=== PATIENT | female | born 1955 | race Caucasian/White ===

== ENCOUNTER → 2021-11-09 | Outpatient (CLI) | payer MEDICARE, OTHER | LOC: ORTHO 08:39 | PROVIDERS: ATTEND Orthopaedic Surgery | DX: M17.11 Unilateral primary osteoarthritis, right knee (principal) | CPT/HCPCS: 99213 ==

== ENCOUNTER → 2022-01-04 | Outpatient (CLI) | payer MEDICARE, OTHER ==
[2022-01-04 09:39] LABS: BASOPHILS % (AUTO) 0 % (0-10); EOSINOPHILS # (AUTO) 0.3 10^3/uL (0.0-0.3); EOSINOPHILS % (AUTO) 4 % (0-10); HEMATOCRIT 39 % (35-52); HEMOGLOBIN 13.3 g/dL (11.5-16.0); LYMPHOCYTES % (AUTO) 28 % (12-44); MEAN CORPUSCULAR HEMOGLOBIN 31 pg (25-34); MEAN CORPUSCULAR HGB CONC 35 g/dL (32-36); MEAN CORPUSCULAR VOLUME 89 fL (80-99); MEAN PLATELET VOLUME 9.3 fL (9.0-12.2); MONOCYTES # (AUTO) 0.5 10^3/uL (0.0-1.0); MONOCYTES % (AUTO) 6 % (0-12); NEUTROPHILS # (AUTO) 4.3 10^3/uL (1.8-7.8); NEUTROPHILS % (AUTO) 62 % (42-75); PLATELET COUNT 362 10^3/uL (130-400); WHITE BLOOD COUNT 7.1 10^3/uL (4.3-11.0)
[2022-01-04 09:41] LABS: BILIRUBIN,URINE NEGATIVE (NEGATIVE); CLARITY,URINE CLEAR; COLOR,URINE YELLOW; GLUCOSE, URINE (UA) NEGATIVE (NEGATIVE); KETONES,URINE NEGATIVE (NEGATIVE); LEUKOCYTE ESTERASE ,URINE NEGATIVE (NEGATIVE); NITRITE,URINE NEGATIVE (NEGATIVE); PROTEIN,URINE NEGATIVE (NEGATIVE)
[2022-01-04 09:49] LABS: BACTERIA,URINE NEGATIVE /HPF
[2022-01-04 09:58] LABS: CALCIUM 9.5 MG/DL (8.5-10.1); CREATININE SERUM 0.88 MG/DL (0.60-1.30); POTASSIUM 3.7 MMOL/L (3.6-5.0)
--- NOTE | 2022-01-04 14:18 | Diagnostic Imaging Report ---
INDICATION: Preop for right knee replacement surgery. PA and lateral chest obtained at 9:47 a.m. FINDINGS: Heart and mediastinal silhouette are normal in appearance. The lungs are clear. There is no pneumothorax or pleural fluid. IMPRESSION: Negative chest. Dictated by: Dictated on workstation # [id number]
--- NOTE | 2022-01-04 14:52 | Diagnostic Imaging Report ---
INDICATION: Right knee pain AP, oblique, and lateral sunrise views of the right knee are obtained. There is advanced degenerative change of the medial compartment of the right knee with severe joint space narrowing and osteophyte formation. The lateral compartment appears relatively preserved. There is patellofemoral osteophyte formation and mild joint space narrowing. IMPRESSION: Degenerative changes of the right knee, most severe in the medial compartment. No acute bony abnormality. Dictated by: Dictated on workstation # [id number]
== END ==
LOC: ORTHO 09:05
PROVIDERS: ATTEND Orthopaedic Surgery
DX: Z01.89 Encounter for other specified special examinations (principal); Z01.818 Encounter for other preprocedural examination; M17.11 Unilateral primary osteoarthritis, right knee
CPT/HCPCS: 36415; 71046; 73564; 80048; 81000; 85025; 93005

== ENCOUNTER 2022-01-10 05:30 | Outpatient (CLI) | payer MEDICARE, OTHER ==
[~2022-01-10] VITALS: Ht 167.6 cm; Wt 99.0 kg
[2022-01-12] MEDS ORDERED: ALPR0.254 PO (13:23)
[2022-01-12] MEDS ORDERED: AMLO-250 PO (13:23)
[2022-01-12] MEDS ORDERED: LOSA100T57 PO (13:23)
[2022-01-12] MEDS ORDERED: ESTR0.5T3 PO (13:23)
[2022-01-12] MEDS ORDERED: DICL75TA2 PO (13:23)
[2022-01-12] MEDS ORDERED: HYDR25TA4 PO (13:23)
[2022-01-12] MEDS ORDERED: GABA-486 PO (13:23)
[2022-01-12] MEDS ORDERED: BENZ200C51 PO (13:23)
[2022-01-12] MEDS ORDERED: ONDA4TAB11 SL (13:23)
[2022-01-12] MEDS ORDERED: METF-478 PO (13:23)
== END 2022-01-12 14:04 | disposition home or self-care (01) ==
LOC: PREOP 05:30
PROVIDERS: ATTEND Orthopaedic Surgery
DX: Z01.818 Encounter for other preprocedural examination (principal)

== ENCOUNTER 2022-01-17 06:02 | Day surgery (SDC) | payer MEDICARE, OTHER ==
[~2022-01-17] VITALS: Ht 167.6 cm; Wt 99.0 kg
[2022-01-17] VITALS (11 sets, daily range): BP systolic 113–190; BP diastolic 35–97
[~2022-01-17 06:02] MED LIST: ALPR0.254 PO; AMLO-250 PO; BENZ200C51 PO; DICL75TA2 PO; ESTR0.5T3 PO; GABA-486 PO; HYDR25TA4 PO; LOSA100T57 PO; METF-478 PO; ONDA4TAB11 SL
[2022-01-17] MEDS ORDERED: ceFAZolin INJECTION 2,000 MG in NS (IVPB) 50 ML IV ONE (06:15)
[2022-01-17] MEDS: LACTATED RINGERS 1,000 ML IV PRN ×2 (06:33→09:12)
[2022-01-17] MEDS ORDERED: SCOPOLAMINE 1.5 MG (TRANSDERM-SCOP) PATCH ONE (06:37)
[2022-01-17] MEDS ORDERED: ONDANSETRON 4 MG/2 ML (SDV) Z0FRAN ONE (06:37)
[2022-01-17] MEDS ORDERED: FAMOTIDINE 20MG/2ML IV (PEPCID) ONE (06:38)
[2022-01-17] MEDS ORDERED: ROPIVACAINE 5MG/ML 30ML VIAL ONE (06:42)
[2022-01-17] MEDS ORDERED: MIDAZOLAM 2 MG/2 ML (VERSED) VIAL ONE (06:43)
[2022-01-17] MEDS ORDERED: fentaNYL INJ 100 MCG/2 ML AMP ONE ×2 (06:43→08:05)
[2022-01-17] MEDS ORDERED: SCOPOLAMINE 1.5 MG (TRANSDERM-SCOP) PATCH TD ONE (06:45)
[2022-01-17] MEDS ORDERED: FAMOTIDINE 20MG/2ML IV (PEPCID) IVP ONE (06:45)
[2022-01-17] MEDS ORDERED: ONDANSETRON 4 MG/2 ML (SDV) Z0FRAN IVP ONE (06:45)
[2022-01-17] MEDS ORDERED: proPOfol 200 MG/20 ML (DIPRIVAN) VIAL IV ONE (06:53)
[2022-01-17] MEDS ORDERED: LIDOCAINE PF 2% 5 ML (XYLOCAINE) VIAL ONE (06:59)
[2022-01-17] MEDS ORDERED: SEVOFLURANE (ULTANE) 15 ML INHAL SOLN ONE (06:59)
[2022-01-17] MEDS ORDERED: SODIUM CHLORIDE 0.9% IRRIGATIO 150 ML, TRANEXAMIC ACID INJECTION 3,000 MG IR ONE ×2 (07:00)
--- NOTE | 2022-01-17 07:17 | Progress Note-Pre Operative ---
Pre-Operative Progress Note Date of Available H&P: Jan 04, 2022 Date H&P Reviewed: Jan 17, 2022 Time H&P Reviewed: 07:10 History & Physical: H&P Reviewed, Patient Examed, No changes noted Pre-Operative Diagnosis: Right Knee Primary Osteoarthritis RADHA VEGA MD Jan 17, 2022 07:17
--- NOTE | 2022-01-17 09:56 | Anesthesia-General Post-Op ---
General Patient Condition Mental Status/LOC: Same as Preop Cardiovascular: Satisfactory Nausea/Vomiting: Absent Respiratory: Satisfactory Pain: Controlled Complications: Absent Post Op Complications Complications None Follow Up Care/Instructions Patient Instructions None needed. Anesthesia/Patient Condition Patient Condition Patient is doing well, no complaints, stable vital signs, no apparent adverse anesthesia problems. No complications reported per nursing. GARRY MOSQUERA CRNA Jan 17, 2022 09:56
--- NOTE | 2022-01-17 09:58 | Operative Report - Ortho ---
Operative Report Surgeon (s)/Application Assistant (s) Surgeon RADHA VEGA MD Application Assistant n/a Pre-Operative Diagnosis Right Knee Primary Osteoarthritis Post-Operative Diagnosis same Operative Report Date of Procedure: Jan 17, 2022 Name of Procedure Performed: Right Total Knee Arthroplasty Description & Findings After obtaining informed consent and marking the patient in the preoperative holding area, the patient did receive IV antibiotics. Patient was taken to the operating room and anesthesia was induced. Surgical timeout was taken. The right lower extremity was prepped and draped in the usual sterile fashion. Incision was made and carried down to fascia. Arthrotomy was performed on the medial side of the patella. Patella was retracted laterally and knee was flexed. Found to have circumferential osteophtye around the distal femur as well as exposed bone in the medial compartment. Hole was made in the distal femur for the intramedullary distal femoral cutting guide. Resection was made then the femur was sized as a 3. 4-in-1 block for a size [address]. Anterior cut was made and there was no notch. Posterior cut was made followed by the chamfers. Box cut was performed. Lug holes were drilled. Attention was turned to the tibial side, extramedullary tibial guide was put into place and aligned with the tibial crest. It was set to take 2 mm off of the affected lateral side. Drop johnny was used to confirm alignment. Resection was made and was parallel to the joint line. Tibial bone block was removed. Lamina price analyst was put into place and the menisci and posterior osteophytes were removed. The knee was trialed with a size 3 femur and a size 3 tibia with a 9 mm poly trial. It was found to come out to full extension and flexed beyond 120 degrees. It was stable to varus and valgus stress throughout its range of m otion. This was accepted. Knee was brought out into extension and the patella was measured at less than 20 mm of thickness. Osteophytes were removed from around the perimeter of the patella. Trial implants were removed. Tibial tray was pinned and punched. The cut bone surfaces were lavaged with pulsatile normal saline. Implants were opened and assembled on the back table. Cement was mixed. Cement was applied to the cut bone surface as well as the implant surface. A size 3 tibial component was impacted into placed and excess cement was removed using a [place]. A size 3 femoral component was impacted into place and excess cement was removed using a [place]. Tibial tray was lavaged with saline. A 9 mm thick polyethylene component was locked into placed and the locking mechanism was checked. Knee was brought into extension. The knee was irrigated with normal saline. Irrigation was removed and tranexamic acid was placed. Once the cement had set, the knee was once again trialed; found to come to full extension, flexed beyond 120 degrees, and was stable to varus and valgus stress. A lateral release was performed to improve patellar tracking. Further tranexamic acid was applied for hemostasis. Tourniquet was dropped and electrocautery was used for further hemostasis. Fascial layer was closed with #2 Stratafix. The subcutaneous layer was closed with 2-0 Vicryl. The skin was closed with 3-0 v-loc. Wound was dressed with steri-strips, xeroform, 4x4s, ABD, webril, and SERGIO wrap. Patient tolerated the procedure well and was stable to the recovery room. Anesthesia Type General plus regional Estimated Blood Loss 150 mL Specimen(s) collected/removed None RADHA VEGA MD Jan 17, 2022 09:58
[2022-01-17] MEDS ORDERED: MEPERIDINE (DEMEROL) INJ 50 MG/ML IVP ONE (10:00)
[2022-01-17] MEDS ORDERED: BISACODYL 5 MG (DULCOLAX) TABLET PO PRN (10:00)
[2022-01-17] MEDS ORDERED: ONDANSETRON 4 MG/2 ML (SDV) Z0FRAN IVP PRN (10:00)
[2022-01-17] MEDS ORDERED: PROMETHAZINE INJ 25 MG/ML (PHENERGAN) AMP IVP ONE (10:00)
[2022-01-17] MEDS ORDERED: MILK OF MAGNESIA 400 MG/5 ML 30 ML UDC PO PRN (10:00)
[2022-01-17] MEDS ORDERED: fentaNYL INJ 100 MCG/2 ML AMP IVP ONE (10:00)
[2022-01-17] MEDS ORDERED: ACETAMINOPHEN 500 MG TAB (TYLENOL) PO PRN (10:00)
--- NOTE | 2022-01-17 10:40 | Diagnostic Imaging Report ---
CLINICAL INDICATION: Postop total knee replacement. EXAM: X-ray of the right knee, 2 views. COMPARISON: None. FINDINGS: Right total knee arthroplasty is seen in good position. There is a compressive device and air overlying the anterior aspect of the right knee. There are chronic appearing hypertrophic bony changes involving the medial aspect of the proximal tibial diametaphysis. IMPRESSION: Right total knee arthroplasty is seen in good position. There is no unexpected radiodense foreign object. Dictated by: Dictated on workstation # [id number]
[2022-01-17] MEDS: HYDROmorphone 2 MG/ML VIAL (DILAUDID) IV PRN ×5 (11:11→20:39)
[2022-01-17] MEDS: NS IV 1000 ML 1,000 ML IV SCH ×2 (12:55→20:30)
[2022-01-17] MEDS: BENZONATATE 100 MG (TESSALON) CAPSULE PO SCH ×2 (12:56→19:33)
[2022-01-17] MEDS: ALPRAZolam 0.25 MG (XANAX) TAB PO SCH ×2 (12:56→20:33)
[2022-01-17] MEDS: PROMETHAZINE INJ 25 MG/ML (PHENERGAN) AMP IVP PRN ×2 (13:02→20:50)
--- NOTE | 2022-01-17 14:08 | Physical Therapy Evaluation ---
PT Evaluation-General Medical Diagnosis Admission Date January 17, 2022 Medical Diagnosis: right knee osteoarthritis Onset Date: Jan 17, 2022 Therapy Diagnosis Therapy Diagnosis: impair mobility Precautions Precautions/Isolations: Standard Precautions Referral Physician: Glenn Reason for Referral: Evaluation/Treatment Medical History Current History s/p elective right TKR Reviewed History: Yes Social History Home: [facility] Current Living Status: Spouse Entry Into Home: Stairs With Railing Prior Prior Level of Function SCALE: Activities may be completed with or without assistive devices. 3-Iboekudncd-tdrahug completes the activity by him/herself with no assistance from a helper. 5-Set-up or Clean-up Assistance-helper sets up or cleans up; patient completes activity. [place] assists only prior to or following the activity. 4-Supervision or Touching Assistance-helper provides verbal cues and/or touching/steadying and/or contact guard assistance as patient completes activity. Assistance may be provided throughout the activity or intermittently. 3-Partial/Moderate Assistance-helper does LESS THAN HALF the effort. [place] lifts, holds or supports trunk or limbs, but provides less than half the effort. 2-Substantial/Maximal Assistance-helper does MORE THAN HALF the effort. [place] lifts or holds trunk or limbs and provides more than half the effort. 6-Rpsvceqpa-lfmtlm does ALL the effort. Patient does none of the effort to complete the activity. Or, the assistance of 2 or more helpers is required for the patient to complete the activity. If activity was not attempted, code reason: 7-Patient Refused. 9-Not Applicable-not attempted and the patient did not perform the activity before the current illness, exacerbation or injury. 10-Not Attempted due to Environmental Limitations-(lack of equipment, weather restraints, etc.). 88-Not Attempted due to Medical Conditions or Safety Concerns. Bed Mobility: 6 Transfers (B,C,W/C): 6 Gait: 6 Stairs: 6 Indoor Mobility (Ambulation): Independent Stairs: Independent Prior Devices Use: Walker PT Evaluation-Current Subjective Patient c/o nausea and uncontrolled right knee pain. Pain Numeric Pain Scale: 10-Worst Possible Pain Location: Right Location Body Site: Knee Pain Description: Acute Objective Patient Orientation: Normal For Age Attachments: Oxygen, Carpio Catheter, Polar Pack, IV ROM/Strength ROM Lower Extremities right knee CPM 0-50 degrees left LE WFL Strength Lower Extremities left LE 4/5 grossly/right LE 3-/5 grossly (no formal testing) Integumentary/Posture Bladder Incontinence: Carpio Cath Posture WFL Neuromuscular (Tone, Coordination, Reflexes) grossly intact Sensory Vision: Functional Hearing: Functional Transfers Sit to Lying (QC): 3 Lying to Sitting/Side of Bed(Q: 4 Sit to Stand (QC): 3 Gait Mode of Locomotion: Walk Anticipated Mode of Locomotion: Walk Walk 10 feet (QC): 4 Distance: 10' side stepping Gait Assistive Device: FWW Balance Sitting Static: Normal Sitting Dynamic: Normal Standing Static: Fair Standing Dynamic: Fair Treatment CPM 0-50 degrees with polar pack in place right LE Assessment/Needs Patient will benefit from skilled PT to address functional strength and mobility to improve current LOF. Patient currently limited by nausea and uncontrolled right knee pain. CPM and polar pack in place right LE Rehab Potential: Good PT [facility] Goals [facility] Goals PT Audit Lead Goals Time Frame: Jan 22, 2022 Roll Left & Right (QC): 6 Sit to Lying (QC): 6 Lying-Sitting on Side/Bed(QC): 6 Sit to Stand (QC): 6 Chair/Mpg-vh-Jdqro Xfer(QC): 6 Toilet Transfer (QC): 6 Walk 10 feet (QC): 6 Walk 50ft with 2 Turns (QC): 6 Walk 150 ft (QC): 6 PT Plan Problem List Problem List: Activity Tolerance, Functional Strength, Safety, Balance, Gait, Transfer, Bed Mobility, ROM Treatment/Plan Treatment Plan: Continue Plan of Care Treatment Plan: Bed Mobility, Education, Functional Activity Davi, Functional Strength, Gait, Safety, Therapeutic Exercise, Transfers Treatment Duration: Jan 22, 2022 Frequency: 11 times per week Estimated Hrs Per Day: .5 hour per day Time Time In: 1310 Time Out: 1330 DATE: Jan 17, 2022 Total Billed Treatment Time: 20 Total Billed Treatment 1 visit EVModC 20 min CPM/PADS MAHESH CUBA PT Jan 17, 2022 14:08
[2022-01-17] MEDS: ASPIRIN E.C. 81 MG (ECOTRIN) TAB PO SCH (17:37)
[2022-01-17] MEDS: HYDROmorphone (DILAUDID) 2 MG TAB PO PRN (19:31)
[2022-01-17] MEDS: CELECOXIB 100 MG (CeleBREX) CAP PO SCH (20:33)
[2022-01-17] MEDS: DOCUSATE SODIUM 100 MG (COLACE) CAP PO SCH (20:33)
[2022-01-17] MEDS: GABAPENTIN 100 MG (NEURONTIN) CAP PO SCH (20:33)
[2022-01-17] MEDS: ceFAZolin INJECTION 2,000 MG in NS (IVPB) 50 ML IV SCH (20:51)
[2022-01-18] VITALS (8 sets, daily range): BP systolic 146–185; BP diastolic 60–79
[2022-01-18] MEDS: HYDROmorphone (DILAUDID) 2 MG TAB PO PRN ×4 (00:41→20:36)
[2022-01-18] MEDS: HYDROmorphone 2 MG/ML VIAL (DILAUDID) IV PRN (02:57)
[2022-01-18] MEDS: PROMETHAZINE INJ 25 MG/ML (PHENERGAN) AMP IVP PRN (03:52)
[2022-01-18] MEDS: ceFAZolin INJECTION 2,000 MG in NS (IVPB) 50 ML IV SCH (05:32)
[2022-01-18] MEDS: NS IV 1000 ML 1,000 ML IV SCH (05:32)
[2022-01-18] MEDS: MULTIVIT W/MINERALS TAB (THERAGRAN M) PO SCH ×2 (05:35→07:33)
[2022-01-18 05:43] LABS: HEMOGLOBIN 10.9 g/dL (11.5-16.0)
[2022-01-18] MEDS: CELECOXIB 100 MG (CeleBREX) CAP PO SCH ×2 (07:33→20:35)
[2022-01-18] MEDS: ASPIRIN E.C. 81 MG (ECOTRIN) TAB PO SCH ×2 (07:34→17:19)
[2022-01-18] MEDS: LOSARTAN 100 MG (COZAAR) TABLET PO SCH (07:34)
[2022-01-18] MEDS: DOCUSATE SODIUM 100 MG (COLACE) CAP PO SCH ×2 (07:34→20:36)
[2022-01-18] MEDS: ALPRAZolam 0.25 MG (XANAX) TAB PO SCH ×3 (07:35→20:36)
[2022-01-18] MEDS: BENZONATATE 100 MG (TESSALON) CAPSULE PO SCH ×3 (07:35→20:36)
[2022-01-18] MEDS: amLODIPine 5 MG (NORVASC) TAB PO SCH (07:35)
[2022-01-18] MEDS: metFORMIN XR 500 MG (GLUCOPHAGE XR) TAB PO SCH (07:35)
--- NOTE | 2022-01-18 08:28 | Progress Note - Ortho ---
Progress Note Subjective Date of Exam 01/18/22 Chief Complaint POD #1 R TKA HPI/Events since last exam having difficulty with pain control, tolerating regular diet, using CPM and tolerating well Review of Systems - Allergies: Coded Allergies: codeine (Verified Allergy, Unknown, ITCH, 01/12/22) gemfibrozil (Verified Allergy, Unknown, SWELLS THROAT SHUT, 01/12/22) hydrocodone (Verified Allergy, Unknown, ITCH N/V, 01/12/22) morphine (Verified Allergy, Unknown, ITCH N/V, 01/12/22) rivaroxaban (Verified Allergy, Unknown, HIVES/BLISTERS, 01/12/22) tetanus and diphtheria toxoids (Verified Allergy, Unknown, Anaphylaxis, 01/12/22) Home Meds Reported Medications Ondansetron (Ondansetron Odt) 4 Mg Tab.rapdis, 4 MG SL Q6H PRN for NAUSEA/VOMITING, TAB 01/12/22 Metformin HCl (Metformin HCl ER) 500 Mg Tab.er.24, 500 MG PO EVENING, TAB 01/12/22 Losartan Potassium (Losartan Potassium) 100 Mg Tablet, 100 MG PO DAILY, TAB 01/12/22 Hydrochlorothiazide (Hydrochlorothiazide) 25 Mg Tablet, 37.5 MG PO DAILY, TAB 01/12/22 Gabapentin (Gabapentin) 100 Mg Capsule, 300 MG PO HS for Neuropathic pain, CAP 01/12/22 Estradiol (Estrace Tablet) 0.5 Mg Tablet, 0.5 MG PO DAILY, TAB 01/12/22 Diclofenac Sodium (Diclofenac Sodium) 75 Mg Tablet.dr, 75 MG PO BID, TAB 01/12/22 Benzonatate (Benzonatate) 200 Mg Capsule, 200 MG PO TID, CAP 01/12/22 Amlodipine Besylate (Amlodipine Besylate) 5 Mg Tablet, 5 MG PO DAILY, TAB 01/12/22 ALPRAZolam (ALPRAZolam) 0.25 Mg Tablet, 0.25 MG PO TID, TAB 01/12/22 Objective Exam R Knee: Dressing C/D/I, +DF of ankle, no s/s of DVT Vital Signs Vital Signs Date Time Temp Pulse Resp B/P (MAP) Pulse Ox O2 Delivery O2 Flow Rate FiO2 01/18/22 07:56 94 Nasal Cannula 1.00 01/18/22 07:33 168/68 (101) 01/18/22 07:17 37.2 80 18 177/78 (111) 94 Nasal Cannula 1.00 01/18/22 04:00 36.7 77 16 181/79 (113) 94 Nasal Cannula 2.00 01/18/22 00:08 37.7 84 16 185/77 (113) 95 Nasal Cannula 2.00 01/17/22 21:54 94 Nasal Cannula 2.00 01/17/22 20:00 Nasal Cannula 2.00 01/17/22 19:27 37.4 81 20 180/79 (112) 96 Nasal Cannula 2.00 01/17/22 15:15 37.0 76 18 156/67 (96) 99 Nasal Cannula 2.00 01/17/22 11:41 36.1 77 20 170/81 (110) 99 Nasal Cannula 2.00 01/17/22 10:50 Nasal Cannula 2.00 01/17/22 10:40 36.8 14 164/80 (108) 95 Nasal Cannula 2.00 01/17/22 10:40 Nasal Cannula 2.00 01/17/22 10:30 Room Air 01/17/22 10:30 16 172/79 (110) 91 Room Air 01/17/22 10:20 OxyMask 3.00 01/17/22 10:20 11 172/76 (108) 100 OxyMask 3.00 01/17/22 10:10 OxyMask 5.00 01/17/22 10:10 9 146/97 (113) 98 OxyMask 3.00 01/17/22 10:00 16 190/92 (124) 97 OxyMask 10.00 01/17/22 09:55 OxyMask 10.00 01/17/22 09:50 12 146/79 (101) 96 OxyMask 10.00 01/17/22 09:40 OxyMask 10.00 01/17/22 09:40 36.4 16 113/35 (61) 94 OxyMask 10.00 I & O 01/18/22 07:00 Intake Total 2195 ml Output Total 1600 ml Balance 595 ml Lab Results Laboratory Tests 01/18/22 05:25: Hemoglobin 10.9L, Hematocrit 32L Microbiology 01/17/22 MRSA Screen - Final, Complete MRSA not isolated Imaging 2 postop views of the right knee dated 01/17/22 were reviewed from PACS and demonstrated satisfactory position of components without complication Assessment and Plan Assessment Right Knee Primary Osteoarthritis s/p R TKA Problem List Right Knee Primary Osteoarthritis s/p R TKA Plan PT/OT DVT Prophylaxis Plan for home tomorrow; home CPM if able to get approved Final Diagonsis Right Knee Primary Osteoarthritis s/p R TKA Level of the visit: Level 3 (postop global) RADHA VEGA MD Jan 18, 2022 08:28
[2022-01-18] MEDS: CYCLOBENZAPRINE 10 MG (FLEXERIL) TAB PO PRN ×2 (09:26→17:22)
--- NOTE | 2022-01-18 09:51 | Physical Therapy Daily Note ---
PT Daily Note-Current Subjective Patient agrees to PT. C/o 11/13 right knee pain with meds issued Pain Section J - Health Conditions 1. Rarely or not at all 2. Occasionally 3. Frequently 4. Almost constantly 8. Unable to answer Pain Effect on Sleep: 4 Pain Interference with Therapy: 4 Pain Interference w/Day-to-Day: 4 Mental Status Patient Orientation: Normal For Age Attachments: IV Transfers SCALE: Activities may be completed with or without assistive devices. 6-Wzkuiszjmt-vczdjcc completes the activity by him/herself with no assistance from a helper. 5-Set-up or Clean-up Assistance-helper sets up or cleans up; patient completes activity. [place] assists only prior to or following the activity. 4-Supervision or Touching Assistance-helper provides verbal cues and/or touching/steadying and/or contact guard assistance as patient completes activity. Assistance may be provided throughout the activity or intermittently. 3-Partial/Moderate Assistance-helper does LESS THAN HALF the effort. [place] lifts, holds or supports trunk or limbs, but provides less than half the effort. 2-Substantial/Maximal Assistance-helper does MORE THAN HALF the effort. [place] lifts or holds trunk or limbs and provides more than half the effort. 2-Vtcurppcc-axyymt does ALL the effort. Patient does none of the effort to com plete the activity. Or, the assistance of 2 or more helpers is required for the patient to complete the activity. If activity was not attempted, code reason: 7-Patient Refused. 9-Not Applicable-not attempted and the patient did not perform the activity before the current illness, exacerbation or injury. 10-Not Attempted due to Environmental Limitations-(lack of equipment, weather restraints, etc.). 88-Not Attempted due to Medical Conditions or Safety Concerns. Lying to Sitting/Side of Bed(Q: 4 Sit to Stand (QC): 4 Chair/Zch-sm-Dpiev Xfer(QC): 4 Gait Training Distance: 225' Walk 10 feet (QC): 4 Walk 50 ft with 2 Turns(QC): 4 Walk 150 ft (QC): 4 Gait Assistive Device: FWW very slow and antalgic Exercises Supine Ex: Ankle pumps, Quad Set, Heel Slides, Straight leg raise Supine Reps: 15 Seated Therapy Exercises: Long arc quads Seated Reps: 15 Assessment Patient tolerates treatment well and is up in recliner with needs met. PT educated patient on importance of performing exercises PRN and to ambulate with spouse PRN. RN notified. PT Soda Flaker Goals Soda Flaker Goals PT Longterm Goals Time Frame: Jan 22, 2022 Roll Left & Right (QC): 6 Sit to Lying (QC): 6 Lying-Sitting on Side/Bed(QC): 6 Sit to Stand (QC): 6 Chair/Rui-po-Jwepg Xfer(QC): 6 Toilet Transfer (QC): 6 Walk 10 feet (QC): 6 Walk 50ft with 2 Turns (QC): 6 Walk 150 ft (QC): 6 PT Plan Treatment/Plan Treatment Plan: Continue Plan of Care Treatment Plan: Bed Mobility, Education, Functional Activity Davi, Functional Strength, Gait, Safety, Therapeutic Exercise, Transfers Treatment Duration: Jan 22, 2022 Frequency: 11 times per week Estimated Hrs Per Day: .5 hour per day Time Time In: 745 Time Out: 813 DATE: Jan 18, 2022 Total Billed Treatment Time: 28 Total Billed Treatment 1 visit GT 15 min EX 13 min MAHESH CUBA PT Jan 18, 2022 09:51
--- NOTE | 2022-01-18 11:56 | Occupational Therapy Eval ---
OT Evaluation-General/PLF Medical Diagnosis Admission Date 01/17/22 Medical Diagnosis: right knee osteoarthritis Onset Date: Jan 17, 2022 Therapy Diagnosis Therapy Diagnosis: N/a Precautions Precautions/Isolations: Fall Prevention, Standard Precautions Referral Physician: Glenn Referral Reason: Evaluation/Treatment Medical History Current History Pt is s/p R TKA on 01/17/22. Pt lives with in a single story home. Pt has a walker at home, but did not use one at baseline. She was independent with all ADLs/IADLs and is still working at a [employer]. Pt and pt's reported that their home is completely handicap accessible inside with widened doorways and raised toilet seats and no stairs inside. 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 Reviewed History: Yes Social History Home: Single Level Current Living Status: Spouse Entry Into Home: Stairs With Railing Steps Into Home: 1 ADL-Prior Level of Function SCALE: Activities may be completed with or without assistive devices. 2-Aprukpnuhg-zvoskvm completes the activity by him/herself with no assistance from a helper. 5-Set-up or Clean-up Assistance-helper sets up or cleans up; patient completes activity. [place] assists only prior to or following the activity. 4-Supervision or Touching Assistance-helper provides verbal cues and/or touching/steadying and/or contact guard assistance as patient completes activity. Assistance may be provided throughout the activity or intermittently. 3-Partial/Moderate Assistance-helper does LESS THAN HALF the effort. [place] lifts, holds or supports trunk or limbs, but provides less than half the effort. 2-Substantial/Maximal Assistance-helper does MORE THAN HALF the effort. [place] lifts or holds trunk or limbs and provides more than half the effort. 7-Mcrzolfpk-urxvbe does ALL the effort. Patient does none of the effort to complete the activity. Or, the assistance of 2 or more helpers is required for the patient to complete the activity. If activity was not attempted, code reason: 7-Patient Refused. 9-Not Applicable-not attempted and the patient did not perform the activity b efore the current illness, exacerbation or injury. 10-Not Attempted due to Environmental Limitations-(lack of equipment, weather restraints, etc.). 88-Not Attempted due to Medical Conditions or Safety Concerns. Self Care: Independent Functional Cognition: Independent DME/Equipment: Sh[address] Self: Yes OT Current Status Subjective Pt was laying in bed upon arrival. present in room. Appearance Pt was left laying in bed with all needs within reach. CPM machine and polar pack donned. Mental Status/Objective Patient Orientation: Person, Place, Time, Situation Attachments: IV Current Glasses/Contacts: Yes Hearing Aids: No Dentures/Partials: No Hand Dominance: Right Upper Extremity ROM WNL Upper Extremity Strength 4/5 at shoulders ADL-Treatment Eating (QC): 6 Oral Hygiene (QC): 6 On/Off Footwear (QC): 3 (min assist for donning R sock. Anticipate regaining independence quickly once pain subsides and ROM increases) Toileting Hygiene (QC): 6 Pt shows good seated and standing balance. She was min assist for R leg supine>sit, but was SBA for transferring back into bed. She was able to use L LE and pull R leg onto bed. Pt's is very knowledgeable and will be a great asset to the pt for her recovery. Pt able to toilet and perform toileting hygiene with independence. Pt was in increased pain (8/10) due to not having pain pill in awhile. She was able to sit EOB and doff/don L sock. Able to doff R sock but unable to don. Anticipate increased independence with task once pain subsides and ROM increases. Pt and spouse decline any further OT services due to her spouse being a FURNITURE REMOVALIST'S ASSISTANT. Education given on bathing and care of incision post d/c. Education OT Patient Education: Correct positioning, Progress toward Goal/Update tx plan, Purpose of tx/functional activities, Reviewed precautions, Rehab process, T ransfer techniques Teaching Recipient: Patient, Significant Other Teaching Methods: Demonstration, Discussion Response to Teaching: Verbalize Understanding, Return Demonstration OT Retirement Goals Bilingual Sales Representative Goals 1=Demonstrate adherence to instructed precautions during ADL tasks. 2=Patient will verbalize/demonstrate understanding of assistive devices/modifications for ADL. 3=Patient will improve strength/tolerance for activity to enable patient to perform ADL's. OT Education/Plan Problem List/Assessment Assessment: No Skilled OT Needs ID'd Discharge Recommendations Plan/Recommendations: Discontinue OT Therapy Discharge Recommendati: Homemaker Support, Home & Family Equpiment Recommendations-D/C: Bath Chair Treatment Plan/Plan of Care Treatment,Training & Education: Yes Patient would benefit from OT for education, treatment and training to promote independence in ADL's, mobility, safety and/or upper extremity function for ADL's. Plan of Care: ADL Retraining, Functional Mobility Treatment Duration: Jan 18, 2022 Frequency: 1 time per week Estimated Hrs Per Day: .25 hour per day Agreement: Yes Rehab Potential: Good Time Start Time: 11:12 Stop Time: 11:28 DATE: Jan 18, 2022 Total Time Billed (hr/min): 16 Billed Treatment Time 1 visit Keisha Villanueva OT Jan 18, 2022 11:56
--- NOTE | 2022-01-18 14:20 | Physical Therapy Daily Note ---
PT Daily Note-Current Subjective Patient agrees to PT. Pain Numeric Pain Scale: 8 Location: Right Location Body Site: Knee Pain Description: Acute Section J - Health Conditions 1. Rarely or not at all 2. Occasionally 3. Frequently 4. Almost constantly 8. Unable to answer Pain Effect on Sleep: 3 Pain Interference with Therapy: 1 Pain Interference w/Day-to-Day: 3 Mental Status Patient Orientation: Normal For Age Transfers SCALE: Activities may be completed with or without assistive devices. 2-Mgfrdthkrx-snfhfdk completes the activity by him/herself with no assistance from a helper. 5-Set-up or Clean-up Assistance-helper sets up or cleans up; patient completes activity. [place] assists only prior to or following the activity. 4-Supervision or Touching Assistance-helper provides verbal cues and/or touching/steadying and/or contact guard assistance as patient completes activity. Assistance may be provided throughout the activity or intermittently. 3-Partial/Moderate Assistance-helper does LESS THAN HALF the effort. [place]ley lifts, holds or supports trunk or limbs, but provides less than half the effort. 2-Substantial/Maximal Assistance-helper does MORE THAN HALF the effort. [place] lifts or holds trunk or limbs and provides more than half the effort. 2-Yvxnbieby-lotnsj does ALL the effort. Patient does none of the effort to complete the activity. Or, the assistance of 2 or more helpers is required for the patient to complete the activity. If activity was not attempted, code reason: 7-Patient Refused. 9-Not Applicable-not attempted and the patient did not perform the activity before the current illness, exacerbation or injury. 10-Not Attempted due to Environmental Limitations-(lack of equipment, weather restraints, etc.). 88-Not Attempted due to Medical Conditions or Safety Concerns. Sit to Lying (QC): 4 Sit to Stand (QC): 4 Gait Training Distance: 200' Walk 10 feet (QC): 4 Walk 50 ft with 2 Turns(QC): 4 Walk 150 ft (QC): 4 Gait Assistive Device: FWW slow, antalgic gait sequence with VC's for heel toe gait Exercises Supine Ex: Ankle pumps, Quad Set, Heel Slides, Straight leg raise Supine Reps: 15 Assessment Patient tolerated treatment well and is in bed with polar pack in place. Plan dismissal tomorrow per patient and spouse report. PT Shelter Goals Shelter Goals PT Shelter Goals Time Frame: Jan 22, 2022 Roll Left & Right (QC): 6 Sit to Lying (QC): 6 Lying-Sitting on Side/Bed(QC): 6 Sit to Stand (QC): 6 Chair/Inl-so-Urhis Xfer(QC): 6 Toilet Transfer (QC): 6 Walk 10 feet (QC): 6 Walk 50ft with 2 Turns (QC): 6 Walk 150 ft (QC): 6 PT Plan Treatment/Plan Treatment Plan: Continue Plan of Care Treatment Plan: Bed Mobility, Education, Functional Activity Davi, Functional Strength, Gait, Safety, Therapeutic Exercise, Transfers Treatment Duration: Jan 22, 2022 Frequency: 11 times per week Estimated Hrs Per Day: .5 hour per day Time Time In: 1330 Time Out: 1348 DATE: Jan 18, 2022 Total Billed Treatment Time: 18 Total Billed Treatment 1 visit FA 18 min MAHESH CUBA PT Jan 18, 2022 14:20
[2022-01-18] MEDS: GABAPENTIN 100 MG (NEURONTIN) CAP PO SCH (20:36)
[2022-01-19 03:46] VITALS: BP 144/64
[2022-01-19] MEDS: CYCLOBENZAPRINE 10 MG (FLEXERIL) TAB PO PRN (04:03)
[2022-01-19] MEDS: HYDROmorphone (DILAUDID) 2 MG TAB PO PRN ×2 (04:03→07:57)
[2022-01-19 05:56] LABS: HEMOGLOBIN 9.9 g/dL (11.5-16.0)
[2022-01-19 07:51] VITALS: BP 145/64
[2022-01-19] MEDS: ALPRAZolam 0.25 MG (XANAX) TAB PO SCH (07:55)
[2022-01-19] MEDS: BENZONATATE 100 MG (TESSALON) CAPSULE PO SCH (07:55)
[2022-01-19] MEDS: DOCUSATE SODIUM 100 MG (COLACE) CAP PO SCH (07:55)
[2022-01-19] MEDS: ASPIRIN E.C. 81 MG (ECOTRIN) TAB PO SCH (07:55)
[2022-01-19] MEDS: LOSARTAN 100 MG (COZAAR) TABLET PO SCH (07:56)
[2022-01-19] MEDS: amLODIPine 5 MG (NORVASC) TAB PO SCH (07:56)
[2022-01-19] MEDS: CELECOXIB 100 MG (CeleBREX) CAP PO SCH (07:56)
[2022-01-19] MEDS: metFORMIN XR 500 MG (GLUCOPHAGE XR) TAB PO SCH (07:58)
--- NOTE | 2022-01-19 08:59 | Physical Therapy Daily Note ---
PT Daily Note-Current Subjective Patient in recline pre-tx, reports pain in R knee but did not score, agrees to PT. Pain Section J - Health Conditions 1. Rarely or not at all 2. Occasionally 3. Frequently 4. Almost constantly 8. Unable to answer Pain Effect on Sleep: 3 Pain Interference with Therapy: 1 Pain Interference w/Day-to-Day: 3 Appearance Patient in recliner post-tx with nurse call, phone, tray, all needs met. Mental Status Patient Orientation: Person, Place, Situation Transfers SCALE: Activities may be completed with or without assistive devices. 9-Fnnrdlgnfi-hcrpgnz completes the activity by him/herself with no assistance from a helper. 5-Set-up or Clean-up Assistance-helper sets up or cleans up; patient completes activity. [place] assists only prior to or following the activity. 4-Supervision or Touching Assistance-helper provides verbal cues and/or touching/steadying and/or contact guard assistance as patient completes activity. Assistance may be provided throughout the activity or intermittently. 3-Partial/Moderate Assistance-helper does LESS THAN HALF the effort. [place] lifts, holds or supports trunk or limbs, but provides less than half the effort. 2-Substantial/Maximal Assistance-helper does MORE THAN HALF the effort. [place] lifts or holds trunk or limbs and provides more than half the effort. 9-Mmoxqrkvf-rgqwaz does ALL the effort. Patient does none of the effort to complete the activity. Or, the assistance of 2 or more helpers is required for the patient to complete the activity. If activity was not attempted, code reason: 7-Patient Refused. 9-Not Applicable-not attempted and the patient did not perform the activity before the current illness, exacerbation or injury. 10-Not Attempted due to Environmental Limitations-(lack of equipment, weather restraints, etc.). 88-Not Attempted due to Medical Conditions or Safety Concerns. Sit to Stand (QC): 4 SBA Weight Bearing Right Lower Extremity: Right Weight Bearing/Tolerated Left Lower Extremity: Left Full Weight Bearing Gait Training Does the Patient Walk?: Yes Distance: 200' Walk 10 feet (QC): 4 Walk 50 ft with 2 Turns(QC): 4 Walk 150 ft (QC): 4 Gait Persons Needed: 1 Gait Assistive Device: FWW Patient walks with good step length (SBA), decreased gait speed, antalgic gait on right side, and decreased foot clearance. Exercises Seated Therapy Exercises: Ankle pumps, Long arc quads Seated Reps: 15 Seated Knee Flexion Stretch x10 reps 10 sec hold Treatments Ambulation, LE Strengthening Assessment Current Status: Fair Progress Patient doing well, but still has a lot of right quad weakness and right knee swelling. PT [place] Goals Longterm Goals PT [place] Goals Time Frame: Jan 22, 2022 Roll Left & Right (QC): 6 Sit to Lying (QC): 6 Lying-Sitting on Side/Bed(QC): 6 Sit to Stand (QC): 6 Chair/Dqv-wy-Pcoiy Xfer(QC): 6 Toilet Transfer (QC): 6 Walk 10 feet (QC): 6 Walk 50ft with 2 Turns (QC): 6 Walk 150 ft (QC): 6 PT Plan Problem List Problem List: Activity Tolerance, Functional Strength, Safety, Balance, Gait, Transfer, Bed Mobility, ROM Treatment/Plan Treatment Plan: Continue Plan of Care Treatment Plan: Bed Mobility, Education, Functional Activity Davi, Functional Strength, Gait, Safety, Therapeutic Exercise, Transfers Treatment Duration: Jan 22, 2022 Frequency: 11 times per week Estimated Hrs Per Day: .5 hour per day Patient and/or Family Agrees t: Yes Safety Risks/Education Patient Education: Gait Training, Transfer Techniques, Correct Positioning, Safety Issues Teaching Recipient: Patient Teaching Methods: Demonstration, Discussion Response to Teaching: Reinforcement Needed Time Time In: 820 Time Out: 833 DATE: Jan 19, 2022 Total Billed Treatment Time: 13 Total Billed Treatment 1 visit FA 13min JON PARISH PT Jan 19, 2022 08:59
--- NOTE | 2022-01-19 09:09 | Discharge Summary ---
Discharge Summary Hospital Course Hospital Course Date of Admission: 01/17/22 Admission Diagnosis : Right Knee Primary Osteoarthritis Family Physician/Provider: Date of Discharge: 01/19/22 Discharge Diagnosis: [Right Knee Primary Osteoarthritis s/p R TKA ] Hospital Course: [Admitted on 06/16/21 and went to the operating room for right TKA. Tolerated the procedure well and was transferred to the regular floor. On the day of surgery, she was started on mechnical DVT prophylaxis and began in room therapy. On POD #1, she began chemical DVT prophylaxis and began to ambulate. Pain was controlled with oral medication. On POD #2, she was progressing well with therapy. Pain was controlled with oral medication and she was tolerating a regular diet. Discharge arrangements had been made. She was ready for discharge home. ] Labs and Pending Lab Test: Laboratory Tests 01/19/22 05:30: Hemoglobin 9.9L, Hematocrit 29L Microbiology 01/17/22 MRSA Screen - Final, Complete MRSA not isolated Home Meds Active Reported Ondansetron Odt (Ondansetron) 4 Mg Tab.rapdis 4 Mg SL Q6H PRN Metformin HCl ER (Metformin HCl) 500 Mg Tab.er.24 500 Mg PO EVENING Losartan Potassium 100 Mg Tablet 100 Mg PO DAILY Hydrochlorothiazide 25 Mg Tablet 37.5 Mg PO DAILY Gabapentin 100 Mg Capsule 300 Mg PO HS Estrace Tablet (Estradiol) 0.5 Mg Tablet 0.5 Mg PO DAILY Diclofenac Sodium 75 Mg Tablet.dr 75 Mg PO BID Benzonatate 200 Mg Capsule 200 Mg PO TID Amlodipine Besylate 5 Mg Tablet 5 Mg PO DAILY ALPRAZolam 0.25 Mg Tablet 0.25 Mg PO TID Assessment/Pt Instructions WBAT on right leg; walker for assist. Continue ROM/stretching exercises. Dry dressing daily. F/U on 02/01/[address] Elizabeth Discharge Physical Examination Vital Signs Vital Signs Date Time Temp Pulse Resp B/P (MAP) Pulse Ox O2 Delivery O2 Flow Rate FiO2 01/19/22 07:51 36.6 86 20 145/64 (91) 98 Room Air 01/18/22 07:56 1.00 Extremity: Other (R Knee: Incision C/D/I, +DF of ankle, no s/s of DVT) Allergies: Coded Allergies: codeine (Verified Allergy, Unknown, ITCH, 01/12/22) gemfibrozil (Verified Allergy, Unknown, SWELLS THROAT SHUT, 01/12/22) hydrocodone (Verified Allergy, Unknown, ITCH N/V, 01/12/22) morphine (Verified Allergy, Unknown, ITCH N/V, 01/12/22) rivaroxaban (Verified Allergy, Unknown, HIVES/BLISTERS, 01/12/22) tetanus and diphtheria toxoids (Verified Allergy, Unknown, Anaphylaxis, 01/12/22) Discharge Summary Date of Admission Date of Discharge RADHA ELIZABETH MD Jan 19, 2022 09:09
[2022-01-19] MEDS ORDERED: ASPI-1238 PO (09:12)
[2022-01-19] MEDS ORDERED: HYDR2TAB6 PO (09:12)
[2022-01-19] MEDS ORDERED: PROM12.511 PO (09:12)
[2022-01-19] MEDS ORDERED: CYCL10TA25 PO (09:12)
[2022-01-19 10:20] VITALS: BP 145/64
== END 2022-01-19 10:20 | disposition home or self-care (01) ==
LOC: SDC 06:02 → EDSTATUS 08:00 → 4TH 10:50 → SDC 01-19 10:20
PROVIDERS: ATTEND Orthopaedic Surgery
DX: M17.11 Unilateral primary osteoarthritis, right knee (principal); E66.9 Obesity, unspecified; Z68.35 Body mass index [BMI] 35.0-35.9, adult
CPT/HCPCS: 27447; 73560; 87081; 94664; 94760; 97110; 97116; 97162; 97165; 97530; 97799; C1713 ×2; C1776 ×3; 36415; 85014; 85018

== ENCOUNTER → 2022-02-01 | Outpatient (CLI) | payer MEDICARE, OTHER ==
[~2022-02-01] MED LIST changes: +ASPI-1238 PO; +CYCL10TA25 PO; +HYDR2TAB6 PO; +PROM12.511 PO
== END ==
LOC: ORTHO 15:26
PROVIDERS: ATTEND Orthopaedic Surgery
DX: Z47.89 Encounter for other orthopedic aftercare (principal); Z96.651 Presence of right artificial knee joint

== ENCOUNTER → 2022-03-01 | Outpatient (CLI) | payer MEDICARE, OTHER ==
--- NOTE | 2022-03-01 15:28 | Diagnostic Imaging Report ---
INDICATION: Status post right knee replacement. Follow-up. COMPARISON: 01/17/2022. FINDINGS: Two views of the right knee were obtained. Expected postoperative changes are seen from previous right knee total arthroplasty. Femoral and tibial components appear well-seated. There is no evidence of periprosthetic fracture. No unexpected radiopaque foreign bodies are identified. IMPRESSION: Expected postsurgical changes from previous right knee total arthroplasty, as described above. No evidence of hardware compromise. Dictated by: Dictated on workstation # [id number]
== END ==
LOC: ORTHO 15:18
PROVIDERS: ATTEND Orthopaedic Surgery
DX: Z47.89 Encounter for other orthopedic aftercare (principal)
CPT/HCPCS: 73560

== ENCOUNTER → 2022-03-11 | Outpatient (CLI) | payer MEDICARE, OTHER | LOC: ORTHO 11:52 | PROVIDERS: ATTEND Orthopaedic Surgery | DX: Z47.89 Encounter for other orthopedic aftercare (principal) ==

== ENCOUNTER → 2022-04-21 | Outpatient (CLI) | payer MEDICARE, OTHER | LOC: ORTHO 13:22 | PROVIDERS: ATTEND Orthopaedic Surgery | DX: Z98.890 Other specified postprocedural states (principal) ==

== ENCOUNTER → 2022-12-14 | Outpatient (CLI) | payer MEDICARE, OTHER ==
[~2022-12-14] MED LIST changes: -LOSA100T57 PO; +LOSA100T58 PO
--- NOTE | 2022-12-14 09:18 | Diagnostic Imaging Report ---
INDICATION: Orthopedic aftercare. AP and lateral views of both knees are obtained. Correlation is made with previous study of the right knee dated 03/01/2022. Bilateral total knee arthroplasties appear to be in good position. There is no evidence of acute fracture or malalignment. There is questionable lucency along the posterior margin of the tibial components which was not appreciated on the previous exam. Otherwise old traumatic deformities are seen in the proximal tibia without other acute abnormality. IMPRESSION: Possible developing lucency about the tibial prostheses, bilaterally. This can be associated with loosening and clinical correlation would be useful. Dictated by: Dictated on workstation # [id number]
--- NOTE | 2022-12-14 12:54 | Diagnostic Imaging Report ---
EXAMINATION: Left wrist radiographs, 3 views. COMPARISON: None. HISTORY: 67-year-old female, left wrist pain. FINDINGS: There is mild distal radioulnar arthritis. There is no identified acute fracture. The additional joint spaces are well preserved. IMPRESSION: Mild distal radioulnar arthritis. Dictated by: Dictated on workstation # [id number]
== END ==
LOC: ORTHO 08:57
PROVIDERS: ATTEND Orthopaedic Surgery
DX: G56.02 Carpal tunnel syndrome, left upper limb (principal); Z96.653 Presence of artificial knee joint, bilateral
CPT/HCPCS: 20526; 73110; 73560; G0463; 99213